=== PATIENT | female | born 1995 | race African-American/Black ===

== ENCOUNTER 2024-10-03 15:07 | Emergency (ER) | payer MEDICAID ==
[~2024-10-03] VITALS: Ht 167.6 cm; Wt 105.0 kg
[2024-10-03 15:46] VITALS: O2SAT 100
[2024-10-03 20:51] VITALS: BP 130/85; PULSE 96; RESP 14; TEMP 36.61404; O2SAT 97
== END 2024-10-03 21:01 | disposition home or self-care (01) ==
LOC: ER 15:07
DX: J06.9 Acute upper respiratory infection, unspecified (principal); G40.909 Epilepsy, unspecified, not intractable, without status epilepticus; Z20.822 Contact with and (suspected) exposure to COVID-19
CPT/HCPCS: 87426; 87804; 99283